=== PATIENT | male | born 1990 | race Caucasian/White ===

== ENCOUNTER 2023-01-31 17:27 | Emergency (ER) | payer OTHER, SELFPAY ==
[2023-01-31 17:30] VITALS: BP 139/86; PULSE 89; RESP 18; TEMP 36.4; O2SAT 99; BMI 32.9
--- NOTE | 2023-01-31 17:39 | ED.UPPEXIN1 ---
HPI - Extremity Injury (Upper) General Chief Complaint: Extremity Injury, Upper Stated Complaint: FOREARM PAIN Time Seen by Provider: 01/31/23 17:32 Source: patient Mode of arrival: walk-in Limitations: no limitations History of Present Illness HPI narrative: this patient's here with his for pain swelling and discomfort in his right elbow. Symptoms started today. 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 He has very dry skin of his elbows and his knees. There is what appears be abrasion over his right olecranon area just from physical contact and abrasion. He is not had fever shakes or chills. He's never had soft tissue infection or skin infections previously. He is not known to be a diabetic or have any other medical problems. He does not have a primary care doctor but his does. He has no known ALLERGIES. He is no specific trauma or injury. Related Data Home Medications Medication Instructions Recorded Confirmed No Known Home Medications 01/31/23 01/31/23 Allergies Allergy/AdvReac Type Severity Reaction Status Date / Time No Known Drug Allergies Allergy Verified 01/31/23 17:30 Exam Narrative Exam Narrative: rate is gentleman is afebrile he is quite a bit of swelling and discomfort localizing over to the right elbow. His neurovascular examination distal extremity is normal. There is warmth redness and substantial swelling over the right elbow with a lot of dry skin and chafing an abrasion from his employment. The shoulder is asymptomatic distal forearm is fine and the digits and hand are also asymptomatic. He does have discomfort with passive and active range of motion or supination pronation. Small effusion. This does not appear to be bursitis problem appears to be more of a cellulitis. Rest of examination is normal Constitutional Vital Signs, click to edit/add: Last Vital Signs Temp 97.5 F L 01/31/23 17:30 Pulse 89 01/31/23 17:30 Resp 18 01/31/23 17:30 BP 139/86 01/31/23 17:30 Pulse Ox 99 01/31/23 17:30 Course Vital Signs Vital signs: Vital Signs Temperature 97.5 F L 01/31/23 17:30 Pulse Rate 89 01/31/23 17:30 Respiratory Rate 18 01/31/23 17:30 Blood Pressure 139/86 01/31/23 17:30 Pulse Oximetry 99 01/31/23 17:30 Temperature 97.5 F L 01/31/23 17:30 Pulse Rate 89 01/31/23 17:30 Respiratory Rate 18 01/31/23 17:30 Blood Pressure 139/86 01/31/23 17:30 Pulse Oximetry 99 01/31/23 17:30 MDM - Extremity Injury (Upper) MDM Narrative Medical decision making narrative: this gentleman has an apparent infection in the soft tissues around the right elbow. He was given Ancef 2 g intravenously belly placed on Keflex 500 mg 4 times a day. As I can return here in forty-eight hours or see his 's primary care doctor for reevaluation. He is to abstain from any type of alcoholic beverages, apply warm compresses to be given analgesics as well he was told that he doesn't have substantial improvement in forty-eight hours he may need hospitalization. Discharge Plan Discharge Chief Complaint: Extremity Injury, Upper Clinical Impression: Cellulitis of right elbow Patient Disposition: Home, Self-Care Time of Disposition Decision: 18:35 Prescriptions / Home Meds: No Action No Known Home Medications Additional Instructions: [place]/Keflex take next dose of Keflex tonight Stand Alone Forms: Portal Instructions Referrals: Physician,Non-Staff, MD [Primary Care Provider] - 1 week
[2023-01-31 17:59] LABS: Basophils Absolute Auto 0.1 10^3/uL (0.0-0.1); Basophils Percent Auto 0.5 % (0.2-2.0); Eosinophils Absolute Auto 0.2 10^3/uL (0.0-0.7); Eosinophils Percent Auto 1.8 % (0.9-7.0); Hemoglobin 14.4 g/dL (14.0-18.0); Immature Granulocytes Abs Auto 0.05 10^3/uL (0.00-0.03); Immature Granulocytes Pct Auto 0.4 % (0.0-0.5); Lymphocytes Absolute Auto 1.6 10^3/uL (1.2-3.8); Lymphocytes Percent Auto 12.4 % (20.5-60.0); Mean Corpuscular HGB Conc 34.3 g/dL (29.9-35.2); Mean Corpuscular Hemoglobin 32.7 pg (25.9-34.0); Mean Corpuscular Volume 95.2 fL (80.0-94.0); Mean Platelet Volume 9.7 fL (9.5-13.5); Monocytes Absolute Auto 1.1 10^3/uL (0.3-0.8); Monocytes Percent Auto 8.2 % (1.7-12.0); Neutrophils Percent Auto 76.7 % (43.0-75.0); Platelet Count 225 10^3/uL (150-450); Red Blood Count 4.41 10^6/uL (4.70-6.10); Red Cell Distribution Width 12.1 % (11.0-15.0); White Blood Count 13.1 10^3/uL (4.0-11.0)
[2023-01-31] MEDS: CEFAZOLIN SODIUM/DEXTROSE,ISO 2 GM/50 ML PIGGYBACK IV (17:59)
[2023-01-31 18:28] LABS: Anion Gap 10.4; BUN Creatinine Ratio 10.5; Calcium 8.7 mg/dL (8.5-10.1); Carbon Dioxide 29.3 mmol/L (21.0-32.0); Chloride 103 mmol/L (98-107); Estimated GFR (African America >60 (>=60); Estimated GFR (Non-African Ame >60 (>=60); Glucose 112 mg/dL (74-106); Potassium 3.7 mmol/L (3.5-5.1); Sodium 139 mmol/L (136-145)
== END 2023-01-31 18:45 | disposition home or self-care (01) ==
PROVIDERS: Emergency Provider Emergency Medicine Emergency Medical Services
DX: L03.113 Cellulitis of right upper limb (principal)
CPT/HCPCS: 36415; 80048; 85025; 96365; 99284

== ENCOUNTER 2023-02-02 11:20 | Emergency (ER) | payer OTHER, SELFPAY ==
[2023-02-02 11:27] VITALS: BP 159/96; PULSE 84; RESP 18; TEMP 36.6; O2SAT 99; BMI 29.9
--- NOTE | 2023-02-02 11:42 | XR_ITS ---
The [address] [address] Patient Name: ANASTACIO STINSON MRN: [id number] date: 1990 Sex: M Assigned Patient Location: ER Current Patient Location: ER Accession/Order Number: [id number] Exam Date: 02/02/2023 11:50 Report Date: 02/02/2023 12:09 At the request of: CADE PONCE Procedure: XR elbow RT min 3V Exam: Radiographs: XR elbow RT min 3V Reason for exam: injury Comparison: None XR/XR elbow RT min 3V IMPRESSION: Soft tissue swelling about the right elbow. Right elbow is otherwise unremarkable. Electronically authenticated by: CAROLE TELLES Date: 02/02/2023 12:09
--- NOTE | 2023-02-02 12:41 | ED.EXTPRO1 ---
HPI - Extremity Problem General Chief complaint: Extremity Problem, Nontraumatic Stated complaint: R ELBOW SWOLLEN Time Seen by Provider: 02/02/23 12:36 Source: patient Mode of arrival: walk-in Limitations: no limitations History of Present Illness HPI Narrative: 32-year-old male presented as instructed to the emergency department for reevaluation. He was here two days ago and at that time was diagnosed with right elbow cellulitis. He was given IV Ancef and prescribed Keflex which she's been taking. He states it's feeling improved but he couldn't get into see his PCP for recheck so he came back here. No fever or vomiting. He is able to bend his elbow much better than he could two days ago. Related Data Home Medications Medication Instructions Recorded Confirmed No Known Home Medications 01/31/23 01/31/23 Allergies Allergy/AdvReac Type Severity Reaction Status Date / Time No Known Drug Allergies Allergy Verified 01/31/23 17:30 Review of Systems ROS Narrative A ten point review of systems is negative except as noted above. PFSH PFSH Social History Smoking status: Current every day smoker Exam Narrative Exam Narrative: Nurses note and vital signs reviewed and patient is not hypoxic. General: The patient appears well and in no apparent distress. Patient is resting comfortably on cart. Skin: Warm, dry, no pallor noted. There is no rash noted. Head: Normocephalic, atraumatic Eye: Normal conjunctiva, no drainage Ears, Nose, Mouth, and Throat: oral mucosa is moist. Nares patent. Cardiovascular: Regular Rate and Rhythm Respiratory: Patient is in no distress, no accessory muscle use, lungs are clear to auscultation, no wheezing, rales or rhonchi Back: non-tender GI: nontender Musculoskeletal: right elbow has erythema and dry skin but the elbow has good range of motion. Erythema is at the limit of where the pen ramesh were made two days ago. Neurological: A&O, normal speech Psychiatric: Cooperative Constitutional Vital Signs, click to edit/add: Last Vital Signs Temp 97.8 F 02/02/23 11:27 Pulse 84 02/02/23 11:27 Resp 18 02/02/23 11:27 BP 159/96 H 02/02/23 11:27 Pulse Ox 99 02/02/23 11:27 O2 Del Method Room Air 02/02/23 11:27 Course Vital Signs Vital signs: Vital Signs Temperature 97.8 F 02/02/23 11:27 Pulse Rate 84 02/02/23 11:27 Respiratory Rate 18 02/02/23 11:27 Blood Pressure 159/96 H 02/02/23 11:27 Pulse Oximetry 99 02/02/23 11:27 Oxygen Delivery Method Room Air 02/02/23 11:27 Temperature 97.8 F 02/02/23 11:27 Pulse Rate 84 02/02/23 11:27 Respiratory Rate 18 02/02/23 11:27 Blood Pressure 159/96 H 02/02/23 11:27 Pulse Oximetry 99 02/02/23 11:27 Oxygen Delivery Method Room Air 02/02/23 11:27 MDM - Extremity (Nontraumatic) MDM Narrative Medical decision making narrative: the patient is improving. He was given IV Ancef here and he will continue the Keflex that he is already on and he will finish it. Treatment diagnosis and follow-up were discussed with the patient. He was also given a work note. I have no clinical suspicion of joint space infection. Differential Diagnosis Differential diagnosis: Likely other (cellulitis, intra-articular infection) Discharge Plan Discharge Chief Complaint: Extremity Problem, Nontraumatic Clinical Impression: Cellulitis of right elbow Patient Disposition: Home, Self-Care Time of Disposition Decision: 13:17 Condition: Good Mode of Transportation: Private Vehicle Prescriptions / Home Meds: No Action No Known Home Medications Instructions: Cellulitis (ED) Additional Instructions: continue Keflex and finish it Stand Alone Forms: Portal Instructions Referrals: Physician,Non-Staff, MD [Primary Care Provider] - 1 week
[2023-02-02 13:38] VITALS: BP 136/85
== END 2023-02-02 13:40 | disposition home or self-care (01) ==
PROVIDERS: Emergency Provider Emergency Medicine
DX: L03.113 Cellulitis of right upper limb (principal); F17.210 Nicotine dependence, cigarettes, uncomplicated
CPT/HCPCS: 73080; 96374; 99284

== ENCOUNTER 2024-03-03 20:11 | Emergency (ER) | payer OTHER, SELFPAY ==
[2024-03-03 20:20] VITALS: BP 139/81; PULSE 70; TEMP 36.7; O2SAT 98; BMI 35.9
[2024-03-03 21:13] LABS: Influenza Virus A Antigen Negative; Influenza Virus B Antigen Negative; Internal Control Within Normal Limits; SARS-CoV-2 Ag NEGATIVE (NEGATIVE); Strep A Antigen Screen Negative
--- NOTE | 2024-03-03 21:59 | ED.URI1 ---
HPI - URI/Sore Throat General Chief Complaint: Upper Respiratory Infection Stated Complaint: URTI Time Seen by Provider: 03/03/24 21:40 Source: patient Limitations: no limitations History of Present Illness HPI Narrative: 33-year-old male to the emergency department with chief complaint of cough, sore throat, sinus pain pressure. Symptoms came on suddenly. He has had malaise, fevers, chills. He reports that this is hit him harder than any cold he has never had before. He was sent home from work. He denies any chest pain or shortness of breath. He took some Tylenol Cold and flu earlier in the day and it did not seem to help. Related Data Previous Rx's ?Medication ?Instructions ?Recorded azithromycin 250 mg tablet See Rx Instructions PO .COMPLEX #6 03/03/24 (Zithromax Z-Will) tabs ulgwayzkzbhoici-dbfmcavebzafgdq-EV 5 ml PO Q4H PRN cold symptoms #118 03/03/24 2 mg-30 mg-10 mg/5 mL oral syrup mL (Bromfed DM) Allergies Allergy/AdvReac Type Severity Reaction Status Date / Time No Known Drug Allergies Allergy Verified 03/03/24 20:20 Review of Systems ROS Status of ROS 10 or more systems reviewed and unremarkable except as noted in history and below PFSH PFSH Social History Smoking status: Current every day smoker Little interest or pleasure in doing things: not at all Feeling down, depressed, or hopeless: not at all Exam Narrative Exam Narrative: VITALS: I have reviewed the triage vital signs. GENERAL: Well developed, well appearing adult male in no acute distress. NEURO: Alert and oriented. Moves all extremities. Face is symmetric and expressive. EYES: PERRL. No scleral icterus or conjunctival injection. No discharge. HENT: Normocephalic, atraumatic. Hearing is grossly intact. Nares grossly patent and without discharge. Mucous membranes moist. Maxillary sinus tenderness. Generalized posterior oropharyngeal erythema. NECK: No JVD. Patient moves neck without restriction. CARDIO: Rhythm regular. Normal rate. No murmur, rub, or gallop. Pulses equal bilaterally in the upper and lower extremity. No lower extremity edema. PULM: Rhonchi that clear with coughing. No conversational dyspnea. No splinting, stridor, or accessory muscle use. GI/: Abdomen is soft and non-tender. Normoactive bowel sounds. EXTREMITIES: Symmetric muscle bulk. No joint swelling. No clubbing, cyanosis, or deformity. SKIN: Warm and dry. Normal turgor. No rash or lesions appreciated. PSYCH: Mood, affect, and interaction is appropriate to the setting. Constitutional Vital Signs, click to edit/add: Last Vital Signs Temp 98.1 F 03/03/24 20:20 Pulse 70 03/03/24 20:20 Resp 16 03/03/24 20:20 BP 139/81 03/03/24 20:20 Pulse Ox 98 03/03/24 20:20 O2 Del Method Room Air 03/03/24 20:20 Course Vital Signs Vital signs: Vital Signs Temperature 98.1 F 03/03/24 20:20 Pulse Rate 70 03/03/24 20:20 Respiratory Rate 16 03/03/24 20:20 Blood Pressure 139/81 03/03/24 20:20 Pulse Oximetry 98 03/03/24 20:20 Oxygen Delivery Method Room Air 03/03/24 20:20 Temperature 98.1 F 03/03/24 20:20 Pulse Rate 70 03/03/24 20:20 Respiratory Rate 16 03/03/24 20:20 Blood Pressure 139/81 03/03/24 20:20 Pulse Oximetry 98 03/03/24 20:20 Oxygen Delivery Method Room Air 03/03/24 20:20 MDM - URI/Sore Throat MDM Narrative Medical decision making narrative: 33-year-old male to the emergency department with chief complaint of rapid onset of flulike illness. Cough, sinus pressure, sore throat. Vital stable, the patient is afebrile. He is well-appearing on exam. Swabs were negative. Dexamethasone was given for his pharyngitis. There is mycoplasma in the community at this time with similar symptoms. Will treat with azithromycin. Patient agrees with this plan. Return precautions were discussed. All questions were answered. The patient was discharged home. [facility] DATA #65: Appropriate Treatment for Patients with URI [] The patient was diagnosed with upper respiratory infection and was not prescribed or dispensed an antibiotic. [SATISFIES MIPS PERFORMANCE] [] The patient has competing comorbid condition within the last 12 months. The comorbid condition was [] (e.g., neutropenia, cystic fibrosis, chronic bronchitis, pulmonary edema, respiratory failure, rheumatoid lung disease). [MIPS PERFORMANCE EXCEPTION/EXCLUSION] [] The patient is already on antibiotics, or has taken them within the last 30 days. [MIPS PERFORMANCE EXCEPTION/EXCLUSION] [x] The patient had a competing diagnosis of [atypical pneumonia] (e.g. acute otitis media, chronic sinusitis, cellulitis, UTI, etc.). [MIPS PERFORMANCE EXCEPTION/EXCLUSION] [] The patient was diagnosed with upper respiratory infection and was prescribed or dispensed an antibiotic. [DOES NOT SATISFY MIPS PERFORMANCE] Medical Records Attestation: I reviewed the patient's medical records. Lab Data Attestation: I reviewed the patient's lab results. Labs: Lab Results 03/03/24 Range/Units 20:30 Influenza Type A Ag Negative Influenza Type B Ag Negative SARS-CoV-2 Ag (CV2AG) Negative (NEGATIVE) Streptococcus Screen Negative Discharge Plan Discharge Chief Complaint: Upper Respiratory Infection Clinical Impression: Pharyngitis, Atypical pneumonia Patient Disposition: Home, Self-Care Time of Disposition Decision: 21:57 Condition: Good Mode of Transportation: Private Vehicle Prescriptions / Home Meds: New azithromycin [Zithromax Z-Will] 250 mg tablet See Rx Instructions .ROUTE .COMPLEX Qty: 6 0RF Rx Instructions: For 250 mg dose pack: take 500 mg today (day 1), then 250 mg for 4 days (days 2-5) gfvgrgsrbgzmlus-rwiezuoxx-SG [Bromfed DM] 2-30-10 mg/5 mL syrup 5 ml PO Q4H PRN (Reason: cold symptoms) Qty: 118 0RF Print Language: Latvian Instructions: Upper Respiratory Infection (ED) Additional Instructions: Call the office of your primary care doctor to arrange for follow-up within the above-stated timeframe. Your ED visit was focused on your acute issue and does not replace primary care. You should review your labs, imaging, and diagnoses from this ED visit with your primary care physician. There may be non-emergent/ incidental findings that need further evaluation. You should review your vital signs including blood pressure with your PCP. If you were prescribed medications you should discuss possible side-effects and drug interactions with your pharmacist. Call 911 or go to the nearest Emergency Department if you develop any new or worsening symptoms. Seek immediate medical attention if you develop: worsening shortness of breath, difficulty breathing, chest pain, nausea, vomiting, weakness, numbness, tingling, excessive sweating, loss of motion in your arms or legs, or any new or worsening symptoms. Referrals: Physician,Non-Staff, MD [Primary Care Provider] - 1 week
[2024-03-03] MEDS: DEXAMETHASONE SOD PHOS 10 MG/ML VIAL 16 MG PO (22:14)
== END 2024-03-03 22:17 | disposition home or self-care (01) ==
PROVIDERS: Emergency Provider Student in an Organized Health Care Education/Training Program
DX: J18.9 Pneumonia, unspecified organism (principal); J02.9 Acute pharyngitis, unspecified; F17.200 Nicotine dependence, unspecified, uncomplicated; Z20.822 Contact with and (suspected) exposure to COVID-19
CPT/HCPCS: 87070; 87804; 87811; 87880; 99283; J1100

== ENCOUNTER 2024-08-22 17:56 | Emergency (ER) | payer OTHER, SELFPAY ==
[2024-08-22 17:58] VITALS: BP 135/89; PULSE 98; TEMP 36.7; O2SAT 99; BMI 35.6
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
[2024-08-22] MEDS: BACITRACIN 0.9 GM PACKET 1 PACKET TOPICAL (18:09)
[2024-08-22] MEDS: HYDROCODONE/ACET 5-325 MG TABLET 1 TAB PO (18:09)
[2024-08-22] MEDS: METHOCARBAMOL 500 MG TABLET 1000 MG PO (18:09)
[2024-08-22] MEDS: ADACEL DIPH,PERTUSS(ACELL),TET VAC/PF 0.5 ML ADULT SYRINGE IM (18:10)
--- OUTSIDE RECORDS SUMMARY | 2024-08-22 18:12 | XMS_ITS | CCD ---
Author Organization [facility] Care Team Providers Care Roll Picker Name Role Phone EdilbertojacquelineMohsen hughes Unavailable Unavailable REE, DR DAHLIA Cook Attending Unavailable REE, DR DAHLIA Cook Consulting Unavailable EDITH, DR CROCKETT Primary Care Unavailable REE, DR DAHLIA Cook Admitting Unavailable REE, DR DAHLIA Cook Admitting Unavailable REE, DR DAHLIA Cook Attending Unavailable REE, DR DAHLIA Cook Consulting Unavailable GALOC, DR CROCKETT Primary Care Unavailable WILVER PACHECO Consulting Unavailable PERCY WALSH Attending Unavailable SCHLACHTER, PERCY Referring Unavailable SCHLACHTER, PERCY Primary Care Unavailable SCHCLAUDIO, PERCY Attending Unavailable SCHLACHTER, PERCY Referring Unavailable SCHLACHTER, PERCY Primary Care Unavailable SCHCLAUDIO, PERCY Attending Unavailable SCHLACHTER, PERCY Referring Unavailable SCHLACHTER, PERCY Primary Care Unavailable Schlachter ONLINE PROJECT MANAGER-LUBRICATION WORKER, Percy Primary Care Provide r Medications Current Medications Medication Drug Class(es) Dates Sig (Normalized) Sig (Original) cephalexin 500 mg oral capsule (3 sources) Cephalosporin Antibacterial Start: 02-01-2023 End: 09-24-2023 take 1 capsule by mouth three times daily CEPHalexin (KEFLEX) 500 mg capsule Take 1 capsule (500 mg total) by mouth 3 (three) times a day for 10 days. 30 capsule 09/14/2023 09/24/2023 Active Problems Active Problems Problem Classification Problem Date Documented Da te Episodic/Chronic Nonspecific chest pain (4 sources) Precordial pain; Translations: [Chest pain, unspecified] Onset: 10-30-2020 Episodic Skin and subcutaneous tissue infections (4 sources) Cellulitis of right upper limb; Translations: [Cellulitis] Onset: 09-14-2023 09-14-2023 Episodic Unclassified (1 source) Annual Exam Onset: 11-11-2023 Unclassified (1 source) Cellulitis Re-Check Onset: 09-22-2023 Past or Other Problems Problem Classification Problem Date Documented Da te Episodic/Chronic Allergic reactions (1 source) Urticaria, unspecified; Translations: [URTICARIA UNSPECIFIED] Onset: 11-21-2019 Episodic Other skin disorders (3 sources) Rash and other nonspecific skin eruption; Translations: [RASH OTH NONSPECIFIC SKIN ERUPTION] Onset: 11-18-2019 Episodic Unclassified (3 sources) Onset: 02-12-2023 Resolved: 11-11-2023 02-12-2023 Results Test Name Value Interpretation Reference Range Facil ity CARDIAC DAHLIA ADMITon 021 CK [Catalytic activity/Vol] 234 U/L Critically high 55-170 [facility] Comment on above: Result Comment: Test Repeated. Critical Value Verified Performed By: #### C CURTIS CORTES #### [facility] [address] [place] [address] Ronit Church CK.MB [Mass/Vol] 1.61 ng/mL Normal <=2.37 [facility] Comment on above: Performed By: #### C CURTIS CORTES #### [facility] [address] [place] [address] Ronit Lynnette HSTROP 4.9 pg/mL Normal 4.0-42.2 [facility] Comment on above: Result Comment: CUT- OFF POINTS HAVE BEEN ESTABLISHED BASED ON THE FOURTH UNIVERSAL DEFINITIONS OF MYOCARDIAL INFARCTION. THE UPPER REFERENCE LIMIT (URL) OF TROPONIN, DEFINED THE 99TH PERCENTILE OF cTnI DISTRIBUTION IN A REFERENCE POPULATION, HAS BEEN CONFIRMED THE DECISION THRESHOLD FOR [place] DIAGNOSIS. Performed By: #### C CURTIS CORTES #### [facility] [address] [place], [place] [phone] Ronit Lynnette NANCY 38.0 ng/mL Normal <=121.0 [facility] Comment on above: Performed By: #### C CURTIS CORTES #### [facility] [address] [place], [place] [phone] Ronit Lynnette CBC AUTO DIFFon 10-30-2020 BASO # 0.1 103/ul Normal 0.0-0.1 [facility] Comment on above: Performed By: #### C BC #### [facility] [address] [place], [place] [address] Ronit Lynnette Basophils/100 WBC (Bld) 0.5 % Normal 0.2-2.0 [facility] Comment on above: Performed By: #### C BC #### [facility] [address] [id number] Ronit Lynnette EO # 0.5 103/ul Normal 0.0-0.7 [facility] Comment on above: Performed By: #### C BC #### [facility] [address] [id number] Ronit Lynnette Eosinophils/100 WBC (Bld) 5.9 % Normal 0.9-7.0 [facility] Comment on above: Performed By: #### C BC #### [facility] [address] [place], [place] [phone] Ronit Lynnette Erythrocyte distribution width (RBC) [Ratio] 12.0 % Normal 11.0-15.0 [facility] Comment on above: Performed By: #### C BC #### [facility] [address] [place], [place] [phone] Ronit Lynnette Hematocrit (Bld) [Volume fraction] 38.6 % Critically low 42.0-54.0 [facility] Comment on above: Performed By: #### C BC #### [facility] [address] [place], [place] [phone] Ronit Lynnette Hemoglobin (Bld) [Mass/Vol] 12.9 g/dL Critically low 14.0-18.0 [facility] Comment on above: Performed By: #### C BC #### [facility] [address] [place], [place] [address] Ronit Lynnette IG # 0.04 10e3/ul Critically high 0.00-0.03 [facility] Comment on above: Performed By: #### C BC #### [facility] [address] [place], [place] [address] Ronit Lynnette IG % 0.4 % Normal 0.0-0.5 [facility] Comment on above: Performed By: #### C BC #### [facility] [address] [place] [address] Ronit Lynnette LYMPH # 2.3 103/ul Normal 1.2-3.8 [facility] Comment on above: Performed By: #### C BC #### [facility] [address] [place], [place] [phone] Ronit Lynnette Lymphocytes/100 WBC (Bld) 25.4 % Normal 20.5-60.0 [facility] Comment on above: Performed By: #### C BC #### [facility] [address] [place] [address] Ronit Lynnette MANUAL DIFF REQ NO Normal [facility] Comment on above: Performed By: #### C BC #### [facility] [address] [place] [address] Ronitmarta Church MCH (RBC) [Entitic mass] 31.4 pg Normal 25.9-34.0 [facility] Comment on above: Performed By: #### C BC #### [facility] [address] [place] [address] Ronitmarta Church MCHC (RBC) [Mass/Vol] 33.4 g/dL Normal 29.9-35.2 [facility] Comment on above: Performed By: #### C BC #### [facility] [address] [place] [address] Ronitmarta Church MCV (RBC) [Entitic vol] 93.9 fL Normal 80.0-94.0 [facility] Comment on above: Performed By: #### C BC #### [facility] [address] [place] [address] Ronit Lynnette MONO # 0.7 103/ul Normal 0.3-0.8 [facility] Comment on above: Performed By: #### C BC #### [facility] [address] [place] [address] Ronit Lynnette Monocytes/100 WBC (Bld) 7.2 % Normal 1.7-12.0 [facility] Comment on above: Performed By: #### C BC #### [facility] [address] [place] [address] Ronit Lynnette NEUT # 5.6 103/ul Normal 1.4-6.5 [facility] Comment on above: Performed By: #### C BC #### [facility] [address] [place], [place] [address] Ronit Church Neutrophils/100 WBC (Bld) 60.6 % Normal 43.0-75.0 [facility] Comment on above: Performed By: #### C BC #### [facility] [address] [place], [place] [address] Ronit Church Platelet mean volume (Bld) [Entitic vol] 9.9 fL Normal 9.5-13.5 [facility] Comment on above: Performed By: #### C BC #### [facility] [address] [id number] Ronit Church PLT 292 103/ul Normal 150-450 [facility] Comment on above: Performed By: #### C BC #### [facility] [address] [place], [place] [address] Ronit Church RBC 4.11 106/ul Critically low 4.70-6.10 [facility] Comment on above: Performed By: #### C BC #### [facility] [address] [place], [place] [address] Ronit Church WBC 9.2 103/ul Normal 4.0-11.0 [facility] Comment on above: Performed By: #### C BC #### [facility] [address] [place], [place] [address] Ronit Church D-DIMERon 10-30-2020 D-DIMER 0.34 mg/L FEU Normal 0.19-0.50 [facility] Comment on above: Performed By: #### D DIM #### [facility] [address] [place], [place] [address] Ronit Lynnette D-DIMER COMMENTS SEE BELOW Normal [facility] Comment on above: Result Comment: Incr eases in D-Dimer concentration observed with thromboembolic events can be variable due to localization, size, and age of the thrombus. Therefore, a thromboembolic event cannot be diagnosed with certainty on the basis of the reference range. D-Dimers may also be elevated for a variety of disorders including: advanced age, , coronary disease, cancer, liver disease, infection, inflammation, hematoma, DIC, trauma, post-surgery, diabetes, thrombolytic or anticoagulant therapy, stress, and generalized hospitalization. Performed By: #### D DIM #### [facility] [address] [place], [place] [phone] Ronit Church PROF 14(COMP METB)on 021 Albumin [Mass/Vol] 3.6 g/dL Normal 3.5-5.0 [facility] Comment on above: Performed By: #### C SEBASTIAN, KAYLEYDM #### [facility] [address] [place], [place] [phone] Ronit Lynnette Albumin/Globulin [Mass ratio] 0.8 {ratio} Normal [facility] Comment on above: Performed By: #### C SEBASTIAN, KAYLEYDM #### [facility] [address] [place] [address] Ronit Lynnette ALP [Catalytic activity/Vol] 96 U/L Normal 38-126 [facility] Comment on above: Performed By: #### C SEBASTIAN, KAYLEYDM #### [facility] [address] [place] [address] Ronit Lynnette ALT [Catalytic activity/Vol] 34 U/L Normal 21-72 [facility] Comment on above: Performed By: #### C SEBASTIAN, KAYLEYDM #### [facility] [address] [place], [place] [address] Ronit Lynnette Anion gap [Moles/Vol] 13.8 mmol/L Normal [facility] Comment on above: Performed By: #### C SEBASTIAN, KAYLEYDM #### [facility] [address] [place] [address] Ronit Lynnette AST [Catalytic activity/Vol] 19 U/L Normal 17-59 [facility] Comment on above: Performed By: #### C SEBASTIAN, KAYLEYDM #### [facility] [address] [place], [place] [address] Ronit Lynnette Bilirubin [Mass/Vol] 0.4 mg/dL Normal 0.2-1.3 [facility] Comment on above: Performed By: #### C CURTIS CORTES #### [facility] [address] [address] Ronit Lynnette Calcium [Mass/Vol] 9.3 mg/dL Normal 8.4-10.2 [facility] Comment on above: Performed By: #### C SEBASTIAN, CURTIS #### [facility] [address] [id number] Ronit Lynnette Chloride [Moles/Vol] 102 mmol/L Normal 98-107 [facility] Comment on above: Performed By: #### C SEBASTIAN, CURTIS #### [facility] [address] [address] Ronit Lynnette CO2 [Moles/Vol] 27.8 mmol/L Normal 22.0-30.0 [facility] Comment on above: Performed By: #### C SEBASTIAN, CURTIS #### [facility] [address] [place], [place] [address] Ronit Lynnette Creatinine [Mass/Vol] 0.93 mg/dL Normal 0.66-1.25 [facility] Comment on above: Performed By: #### C SEBASTIAN, CURTIS #### [facility] [address] [id number] Ronit Lynnette EGFR-AF SOUTH [place]FRICAN >60 Normal >=60 [facility] Comment on above: Performed By: #### C SEBASTIAN, CURTIS #### [facility] [address] [place], [place] [address] Ronit Lynnette EGFR-NON AF [place]OU[place]FR[place] >60 Normal >=60 [facility] Comment on above: Performed By: #### C SEBASTIAN, CURTIS #### [facility] [address] [id number] Ronit Lynnette Globulin (S) [Mass/Vol] 4.8 g/dL Normal [facility] Comment on above: Performed By: #### C CURTIS CORTES #### [facility] [address] [address] Ronit Lynnette Glucose [Mass/Vol] 121 mg/dL Critically high 74-106 [facility] Comment on above: Performed By: #### C CURTIS CORTES #### [facility] [address] [id number] Ronit Lynnette Potassium [Moles/Vol] 3.6 mmol/L Normal 3.4-5.0 [facility] Comment on above: Performed By: #### C SEBASTIAN, CMADM #### [facility] [address] [id number] Ronit Lynnette Protein [Mass/Vol] 8.4 g/dL Critically high 6.1-8.2 [facility] Comment on above: Performed By: #### C SEBASTIAN, CMADM #### [facility] [address] [id number] Ronit Lynnette Sodium [Moles/Vol] 140 mmol/L Normal 137-145 [facility] Comment on above: Performed By: #### C SEBASTIAN, CMADM #### [facility] [address] [place], [place] [address] Ronit Lynnette Urea nitrogen [Mass/Vol] 13.0 mg/dL Normal 9.0-20.0 [facility] Comment on above: Performed By: #### C SEBASTIAN, KAYLEYDM #### [facility] [address] [place], [place] [address] Ronit Lynnette Urea nitrogen/Creatinine [Mass ratio] 14.0 mg/mg Normal [facility] Comment on above: Performed By: #### C SEBASTIAN, KAYLEYDM #### [facility] [address] [place], [place] [address] Ronit Lynnette Vital Signs Date Time Vital Sign Value Performing Clinician Leandra crenshaw 11-11-2023 15:54-0400 Body height 182.9 cm Percy DO Work Phone: [facility] 11-11-2023 15:54-0400 Body mass index (BMI) [Ratio] 38.11 kg/m2 Percy Walsh APRN-FERNANDO Work Phone: [facility] 11-11-2023 15:54-0400 Body weight 127.46 kg Percy DO Work Phone: [facility] 11-11-2023 15:54-0400 Diastolic blood pressure 80 mm[Hg] Percy Schlachter ONLINE PROJECT MANAGER-LUBRICATION WORKER Work Phone: [facility] 11-11-2023 15:54-0400 Heart rate 96 /min Percy Thonychter ONLINE PROJECT MANAGER-LUBRICATION WORKER Work Phone: [facility] 11-11-2023 15:54-0400 Respiratory rate 20 /min Percy Schlachter ONLINE PROJECT MANAGER-LUBRICATION WORKER Work Phone: [facility] 11-11-2023 15:54-0400 SaO2% (BldA) [Mass fraction] 96 % Percy Valorielachter ONLINE PROJECT MANAGER-LUBRICATION WORKER Work Phone: [facility] 11-11-2023 15:54-0400 Systolic blood pressure 126 mm[Hg] Percy Valorielachter ONLINE PROJECT MANAGER-LUBRICATION WORKER Work Phone: [facility] 09-22-2023 15:57-0400 Body weight 127.01 kg Percy Bhandarichter ONLINE PROJECT MANAGER-LUBRICATION WORKER Work Phone: [facility] 09-22-2023 15:57-0400 Diastolic blood pressure 80 mm[Hg] Percy Schlachter ONLINE PROJECT MANAGER-LUBRICATION WORKER Work Phone: [facility] 09-22-2023 15:57-0400 Heart rate 86 /min Percy Bhandarichter ONLINE PROJECT MANAGER-LUBRICATION WORKER Work Phone: [facility] 09-22-2023 15:57-0400 Respiratory rate 18 /min Percy Bhandarichter ONLINE PROJECT MANAGER-LUBRICATION WORKER Work Phone: [facility] 09-22-2023 15:57-0400 SaO2% (BldA) [Mass fraction] 95 % Percy Valorielachter ONLINE PROJECT MANAGER-LUBRICATION WORKER Work Phone: [facility] 09-22-2023 15:57-0400 Systolic blood pressure 130 mm[Hg] Percy Schlachter ONLINE PROJECT MANAGER-LUBRICATION WORKER Work Phone: [facility] 09-14-2023 15:48-0400 Body weight 124.29 kg Percy Walsh ONLINE PROJECT MANAGER-LUBRICATION WORKER [facility] 09-14-2023 15:48-0400 Diastolic blood pressure 80 mm[Hg] Percy Walsh ONLINE PROJECT MANAGER-LUBRICATION WORKER [facility] 09-14-2023 15:48-0400 Heart rate 100 /min Percy Walsh ONLINE PROJECT MANAGER-LUBRICATION WORKER [facility] 09-14-2023 15:48-0400 Respiratory rate 16 /min Percy Walsh ONLINE PROJECT MANAGER-LUBRICATION WORKER [facility] 09-14-2023 15:48-0400 SaO2% (BldA) [Mass fraction] 99 % Percy Walsh ONLINE PROJECT MANAGER-LUBRICATION WORKER [facility] 09-14-2023 15:48-0400 Systolic blood pressure 126 mm[Hg] Percy Walsh ONLINE PROJECT MANAGER-LUBRICATION WORKER [facility] Encounters Encounter Date Encounter Type Care Provider Facility Start: 11-11-2023 End: 11-11-2023 Patient encounter status Percy Walsh APRN-LUBRICATION WORKER Work Phone: [employer] Work Phone: Start: 11-11-2023 End: 11-11-2023 Periodic preventive med est patient 18-39 yrs Percy Nico ONLINE PROJECT MANAGER-LUBRICATION WORKER Work Phone: [facility] Comment on above: Wellness examination (Primary Dx) Start: 11-11-2023 End: 11-11-2023 ambulatory [facility] Start: 11-11-2023 Encounter for genera l adult medical examination without abnormal findings [facility] Start: 09-22-2023 End: 09-22-2023 Office outpatient visit 15 minutes Percy Walsh ONLINE PROJECT MANAGER-LUBRICATION WORKER Work Phone: [facility] Comment on above: Cellulitis of right upper extremity (Primary Dx) Start: 09-22-2023 End: 09-22-2023 ambulatory [facility] Start: 09-14-2023 End: 09-14-2023 Office outpatient visit 15 minutes Percy DO Work Phone: [facility] Comment on above: Cellulitis of right upper extremity (Primary Dx) Start: 09-14-2023 End: 09-14-2023 ambulatory [facility] Start: 10-30-2020 End: 10-31-[address] DAHLIA KEENAN Facility:[facility] Start: 11-18-2019 End: 11-18-[address] DAHLIA KEENAN Facility:[facility] Start: 01-08-2018 End: 01-09-2018 Patient encounter Mohsen Franklin Facility:[id number] Plan of Treatment Date Care Activity Detail Author Start: 11-14-2024 End: 11-14-2024 Patient encounter procedure 11/14/2024 4:00 PM EDT Office Visit [facility] [address] [place] [id number] Percy Walsh APRN-CNP [address] [place] [address] [facility] Start: 11-10-2024 Adult BMI Screening Adult BMI Screen ing [facility] Start: 11-10-2024 Tobacco Screening Tobacco Screening [facility] Start: 09-21-2024 Tobacco Screening Tobacco Screening [facility] Start: 09-13-2024 Tobacco Screening Tobacco Screening [facility] Start: 02-13-2024 Adult BMI Follow Up Plan Adult BMI Follow Up Plan [facility] Start: 01-17-2024 Influenza vaccination Influenza Vacc ine [facility] Start: 11-11-2023 End: 11-11-2023 Patient encounter procedure 11/11/2023 4:00 PM EDT Office Visit [facility] [address] [place] [address] Percy Walsh APRN-CNP [address] [place] [address] [facility] Start: 11-11-2023 End: 11-10-2024 CBC W Auto Differential panel - Blood CBC auto differential Lab Routine Wellness examination Expected: 11/11/2023, Expires: 11/10/2024 [employer] Work Phone: Comment on above: Expected: 11/11/2023 , Expires: 11/10/2024 Start: 11-11-2023 End: 11-10-2024 Lipid 1996 panel - Serum or Plasma Lipid profile Lab Routine Wellness examination Expected: 11/11/2023, Expires: 11/10/2024 [facility] Comment on above: Expected: 11/11/2023 , Expires: 11/10/2024 Start: 09-22-2023 End: 09-22-2023 Patient encounter procedure 09/22/2023 4:00 PM EDT Office Visit [facility] [address] [place] [address] Percy Walsh, [facility] [address] [place] [address] [facility] Start: 2011 DTaP,Tdap and Td Vaccines (1 - Tdap) DTaP,Tdap and Td Vaccines (1 - Tdap) [facility] Start: 2010 Adult BMI Screening Adult BMI Screen ing [facility] Start: 2004 Depression Screening Depression Scre ening [facility] Start: 1992 Tobacco Counseling Tobacco Counselin g [facility] End: 11-10-2024 Comprehensive metabolic 2000 panel - Serum or Plasma Comprehensive metabolic panel Lab Routine Wellness examination 1 Occurrences starting 11/11/2023 until 11/10/2024 [facility] Comment on above: 1 Occurrences starti ng 11/11/2023 until 11/10/2024 Payers Date Payer Category Payer Medicaid [employer] [id number] 2020-Present [phone] [address] [place] [address] [id number] 1992 Unknown [id number] 1992 Unknown [id number] 1992 Unknown [id number] 1992 Unknown [id number] 1992 Unknown [id number] 1959 Private Health Insurance [id number] 1959 Unknown [id number] Social History Date Type Detail Facility Start: 02-05-2023 Tobacco smoking stat [facility] Ex-smoker [facility] History of tobacco use Current smoker [facility] History of tobacco use Cigarette Smoker P [facility] Start: 02-05-2023 Tobacco use and exposure User of smokeless tobacco [facility] History of tobacco use Chews Tobacco [facility] Start: 09-14-2023 End: 11-11-2023 Alcoholic beverage intake Ex-drinker (finding) [facility] Start: 10-26-2018 End: 09-14-2023 History of Social function [facility] Start: 10-26-2018 End: 09-14-2023 Tobacco use panel [facility] Childcare Unknown [facility] Start: 1992 Sex assigned at Not on file P [facility] History of Present illness Narrative 11-11-2023 Percy Walsh APRN-FERNANDO - 11/11/2023 4:00 PM EDT Note Date & Type Note Facility 11-11-2023 History of Presen t illness Narrative Images from the original note were not included. [address] [place] [id number] Subjective: Gregory Apodaca is a 33 y.o. male who presents for an Annual Wellness exam. Patient presents to the office for routine wellness. Denies any concerns. Due for yearly lab work. Annual Exam Pertinent negatives include no abdominal pain, arthralgias, chest pain, congestion, coughing, fatigue, fever, joint swelling, nausea, neck pain, numbness, rash, sore throat, vomiting or weakness. The following portions of the patient's history were reviewed and updated as appropriate: medications, allergies, past medical history, past surgical history, social history, family history and immunization history Vitals: Vitals: 11/11/23 1554 BP: 126/80 Pulse: 96 Resp: 20 SpO2: 96% Weight: 127.5 kg (281 lb) Height: 182.9 cm (6') History: There are no problems to display for this patient. History reviewed. No pertinent past medical history. History reviewed. No pertinent surgical history. History reviewed. No pertinent family history. Social History Tobacco Use Smoking status: Former Types: Cigarettes Smokeless tobacco: Current Types: Chew Substance Use Topics Alcohol use: Not Currently Allergies: No Known Allergies There is no immunization history on file for this patient. Review of Systems: Review of Systems Constitutional: Negative for fatigue, fever and unexpected weight change. HENT: Negative for congestion, ear pain, sinus pressure, sinus pain and sore throat. Eyes: Negative for photophobia, pain, discharge and visual disturbance. Respiratory: Negative for cough and shortness of breath. Cardiovascular: Negative for chest pain, palpitations and leg swelling. Gastrointestinal: Negative for abdominal pain, diarrhea, nausea and vomiting. Endocrine: Negative for polydipsia, polyphagia and polyuria. Genitourinary: Negative for difficulty urinating, frequency, hematuria and urgency. Musculoskeletal: Negative for arthralgias, gait problem, joint swelling and neck pain. Skin: Negative for pallor and rash. Neurological: Negative for dizziness, weakness, light-headedness and numbness. Psychiatric/Behavioral: Negative for sleep disturbance. The patient is not nervous/anxious. Objective: BP 126/80 Pulse 96 Resp 20 Ht 182.9 cm (6') Wt 127.5 kg (281 lb) SpO2 96% BMI 38.11 kg/m Physical Exam Constitutional: Appearance: He is well-developed. HENT: Head: Normocephalic and atraumatic. Right Ear: Tympanic membrane, ear canal and external ear normal. Left Ear: Tympanic membrane, ear canal and external ear normal. Eyes: Conjunctiva/sclera: Conjunctivae normal. Pupils: Pupils are equal, round, and reactive to light. Cardiovascular: Rate and Rhythm: Normal rate and regular rhythm. Heart sounds: Normal heart sounds. Pulmonary: Effort: Pulmonary effort is normal. Breath sounds: Normal breath sounds. Musculoskeletal: Cervical back: Normal range of motion. Skin: General: Skin is warm and dry. Neurological: Mental Status: He is alert and oriented to person, place, and time. Psychiatric: Mood and Affect: Mood normal. Assessment/Plan: Gregory was seen today for annual exam. Diagnoses and all orders for this visit: Wellness examination - CBC auto differential; Future - Comprehensive metabolic panel; Future - Lipid profile; Future Plan No outpatient medications prior to visit. No facility-administered medications prior to visit. Follow Up: Cbc,cmp,lipid profile Will call with results Follow up yearly or as needed Patient noted to have elevated BMI and the following intervention(s) were applied: encouragement to exercise. ERNESTINA Dan 11/11/23 1624 documented in this encounter [facility] History of Present illness Narrative 09-22-2023 ERNESTINA Dan - 09/22/2023 4:00 PM EDT Note Date & Type Note Facility 09-22-2023 History of Presen t illness Narrative Images from the original note were not included. [id number] [facility] [id number] SUBJECTIVE: Patient ID: Gregory Apodaca is a 33 y.o. male. Patient presents to office for follow up for cellulitis. Area has improved. Does have scab but it is healing. Cellulitis Re-Check Pertinent negatives include no abdominal pain, arthralgias, chest pain, congestion, coughing, fatigue, fever, joint swelling, nausea, neck pain, numbness, rash, sore throat, vomiting or weakness. The following portions of the patient's history were reviewed and updated as appropriate: allergies, current medications, past family history, past medical history, past social history, past surgical history and problem list. REVIEW OF SYSTEMS: Review of Systems Constitutional: Negative for fatigue, fever and unexpected weight change. HENT: Negative for congestion, ear pain, sinus pressure, sinus pain and sore throat. Eyes: Negative for photophobia, pain, discharge and visual disturbance. Respiratory: Negative for cough and shortness of breath. Cardiovascular: Negative for chest pain, palpitations and leg swelling. Gastrointestinal: Negative for abdominal pain, diarrhea, nausea and vomiting. Endocrine: Negative for polydipsia, polyphagia and polyuria. Genitourinary: Negative for difficulty urinating, frequency, hematuria and urgency. Musculoskeletal: Negative for arthralgias, gait problem, joint swelling and neck pain. Skin: Negative for pallor and rash. Neurological: Negative for dizziness, weakness, light-headedness and numbness. Psychiatric/Behavioral: Negative for sleep disturbance. The patient is not nervous/anxious. PHYSICAL EXAMINATION: Vitals: 09/22/23 1557 BP: 130/80 Pulse: 86 Resp: 18 SpO2: 95% Weight: 127 kg (280 lb) Physical Exam Constitutional: Appearance: He is well-developed. HENT: Head: Normocephalic and atraumatic. Right Ear: External ear normal. Left Ear: External ear normal. Eyes: Conjunctiva/sclera: Conjunctivae normal. Pupils: Pupils are equal, round, and reactive to light. Cardiovascular: Rate and Rhythm: Normal rate and regular rhythm. Heart sounds: Normal heart sounds. Pulmonary: Effort: Pulmonary effort is normal. Breath sounds: Normal breath sounds. Abdominal: General: Bowel sounds are normal. Musculoskeletal: General: Normal range of motion. Cervical back: Normal range of motion. Skin: General: Skin is warm and dry. Comments: Scab formed on right elbow, no redness or drainage noted Neurological: Mental Status: He is alert and oriented to person, place, and time. Psychiatric: Mood and Affect: Mood normal. ASSESSMENT/PLAN: Gregory was seen today for cellulitis re-check. Diagnoses and all orders for this visit: Cellulitis of right upper extremity Follow-up: Follow up for routine wellness or as needed Percy Walsh APRN-FERNANDO 09/22/23 1629 documented in this encounter [facility] History of Present illness Narrative 09-14-2023 ERNESTINA Dan - 09/14/2023 3:45 PM EDT Note Date & Type Note Facility 09-14-2023 History of Presen t illness Narrative Images from the original note were not included. [address] [place] [id number] SUBJECTIVE: Patient ID: Gregory Apodaca is a 33 y.o. male. Patient presents to the office for right elbow pain, drainage. Patient had cellulitis in his right elbow a few months ago. On Thursday his noticed some drainage from the area. Does have a scab on elbow. 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 The following portions of the patient's history were reviewed and updated as appropriate: allergies, current medications, past family history, past medical history, past social history, past surgical history and problem list. REVIEW OF SYSTEMS: Review of Systems Constitutional: Negative for fatigue, fever and unexpected weight change. HENT: Negative for congestion, ear pain, sinus pressure, sinus pain and sore throat. Eyes: Negative for photophobia, pain, discharge and visual disturbance. Respiratory: Negative for cough and shortness of breath. Cardiovascular: Negative for chest pain, palpitations and leg swelling. Gastrointestinal: Negative for abdominal pain, diarrhea, nausea and vomiting. Endocrine: Negative for polydipsia, polyphagia and polyuria. Genitourinary: Negative for difficulty urinating, frequency, hematuria and urgency. Musculoskeletal: Negative for arthralgias, gait problem, joint swelling and neck pain. Skin: Positive for wound. Negative for pallor and rash. Neurological: Negative for dizziness, weakness, light-headedness and numbness. Psychiatric/Behavioral: Negative for sleep disturbance. The patient is not nervous/anxious. PHYSICAL EXAMINATION: Vitals: 09/14/23 1548 BP: 126/80 Pulse: 100 Resp: 16 SpO2: 99% Weight: 124.3 kg (274 lb) Physical Exam Constitutional: Appearance: He is well-developed. HENT: Head: Normocephalic and atraumatic. Right Ear: External ear normal. Left Ear: External ear normal. Eyes: Conjunctiva/sclera: Conjunctivae normal. Pupils: Pupils are equal, round, and reactive to light. Cardiovascular: Rate and Rhythm: Normal rate and regular rhythm. Heart sounds: Normal heart sounds. Pulmonary: Effort: Pulmonary effort is normal. Breath sounds: Normal breath sounds. Musculoskeletal: Cervical back: Normal range of motion. Skin: General: Skin is warm and dry. Comments: Scab noted and some swelling to right elbow Neurological: Mental Status: He is alert and oriented to person, place, and time. Psychiatric: Mood and Affect: Mood normal. ASSESSMENT/PLAN: Gregory was seen today for cellulitis. Diagnoses and all orders for this visit: Cellulitis of right upper extremity Other orders - CEPHalexin (KEFLEX) 500 mg capsule; Take 1 capsule (500 mg total) by mouth 3 (three) times a day for 10 days. Follow-up: Kefelx 500mg tid for ten days Follow up in one week ERNESTINA Dan 09/14/23 1605 documented in this encounter [facility] Clinical Note 10-30-2020 Note Date & Type Note Facility 10-30-2020 Note PROCEDURE: XR CHEST 1 V REASON FOR STUDY/CLINICAL HISTORY: CHEST PAIN, UNSPECIFIED. COMPARISON STUDY: 06/11/2016. TECHNIQUE: Single view(s) of the chest presented for interpretation. FINDINGS: No acute cardiopulmonary process. Normal cardiomediastinal silhouette when accounting for this projection and level of inspiration. Very subtle left lateral basilar and right medial basilar atelectatic change. Subtle parenchymal opacity along the region of the right minor fissure is suggested however this may be due to overlapping of structures and artifact. No focal consolidation, edema, or effusion. No pneumothorax. No acute appearing focal significant bony abnormality. IMPRESSION: Minimal bibasilar atelectasis. Subtle opacity suggested on the right which may represent overlapping of structures, however if clinically warranted consider cross-sectional imaging. No large effusion, dense consolidation, or pneumothorax. Electronically authenticated by: WILVER PACHECO Date: 2020-10-30 21:50 [facility] Evaluation note Note Date & Type Note Facility Evaluation note Diagnosis Cellulitis of right upper extremity- Primary documented in this encounter [facility] Evaluation note Note Date & Type Note Facility Evaluation note Diagnosis Cellulitis of right upper extremity- Primary documented in this encounter [facility] Evaluation note Note Date & Type Note Facility Evaluation note Diagnosis Wellness examination- Primary documented in this encounter [facility] Instructions Attachments Note Date & Type Note Facility Instructions The following attachments cannot be sent through Care Everywhere.Cellulitis (Skin Infection) Discharge Instructions, Adult (Dominican)documented in this encounter [facility] Instructions Attachments Note Date & Type Note Facility Instructions The following attachments cannot be sent through Care Everywhere.Cellulitis (Skin Infection) Discharge Instructions, Adult (Dominican)documented in this encounter [facility] Instructions Attachments Note Date & Type Note Facility Instructions The following attachments cannot be sent through Care Everywhere.Yearly Physical for Adults (Dominican)documented in this encounter [facility] Summary Purpose Family History No Family History Records FoundNo Family History Records FoundNo Family History Records Found Advance Directives No Advanced Directives Records FoundNo Advanced Directives Records FoundNo Advanced Directives Records Found Additional Source Comments (unrecognized sect ion and content) No Status Records FoundNo Status Records FoundNo Status Records Found INFORMATION SOURCE (unrecogn ized section and content) DATE CREATED AUTHOR 01/11/2018 [facility] DATE CREATED AUTHOR AUTHOR'S ORGANIZ ATION 11/02/2020 [facility] DATE CREATED AUTHOR AUTHOR'S ORGANIZ ATION 11/13/2023 [facility] Reason for Visit (unrecogniz ed section and content) Reason Comments Cellulitis Reason Comments Cellulitis Re-Check Reason Comments Annual Exam Care Teams (unrecognized sec tion and content) Roll Picker Relationship Specialty Start Date End Date Percy Walsh APRN-LUBRICATION WORKER [address] [place] [address] PCP - General Family Medicine 02/05/23 Roll Picker Relationship Specialty Start Date End Date Percy Walsh APRN-LUBRICATION WORKER [address] [place] [address] PCP - General Family Medicine 02/05/23 Roll Picker Relationship Specialty Start Date End Date Percy Walsh APRN-FERNANDO [address] [place] [address] PCP - General Family Medicine 02/05/23 FOR RECORDS PERTAINING TO PATIENTS WHO ARE OR HAVE BEEN ENROLLED IN A CHEMICAL DEPENDENCY/SUBSTANCEABUSE PROGRAM, SOME INFORMATION MAY BE OMITTED. This clinical summary was aggregated from multiple sources. Caution should be exercised in using it in the provision of clinical care. This summary normalizes information from multiple sources, and as a consequence, information in this document may materially change the coding, format and clinical context of patient data. In addition, data may be omitted in some cases. CLINICAL DECISIONS SHOULD BE BASED ON THE PRIMARY CLINICAL RECORDS. [email or web address] provides no warranty or guarantee of the accuracy or completeness of information in this document.
--- NOTE | 2024-08-22 18:36 | PC.NURSE ---
bacitracin, ABD and keo wrap applied to left upper thigh, pt tolerated well
== END 2024-08-22 19:31 | disposition home or self-care (01) ==
PROVIDERS: Emergency Provider Emergency Medicine
DX: S09.8XXA Other specified injuries of head, initial encounter (principal); S70.12XA Contusion of left thigh, initial encounter; S00.31XA Abrasion of nose, initial encounter; V43.53XA Car driver injured in collision with pick-up truck in traffic accident, initial encounter; Z23 Encounter for immunization
CPT/HCPCS: 70450; 72125; 72170; 73552; 90471; 90715; 99285